=== PATIENT | female | born 1945 | race Caucasian/White ===

== ENCOUNTER → 2018-10-17 | Outpatient (CLI) | payer MEDICARE, OTHER | LOC: MC.RAD 13:58 | DX: Z12.31 Encounter for screening mammogram for malignant neoplasm of breast (principal) ==

== ENCOUNTER → 2022-12-30 | Outpatient (CLI) | payer MEDICARE | LOC: MC.RAD 09:01 | DX: Z12.31 Encounter for screening mammogram for malignant neoplasm of breast (principal) ==

== ENCOUNTER → 2024-01-24 | Outpatient (CLI) | payer MEDICARE ==
[~2024-01-24] MED LIST: PRILOTC PO
== END ==
LOC: MC.RAD 14:16
DX: Z12.31 Encounter for screening mammogram for malignant neoplasm of breast (principal)

== ENCOUNTER 2024-04-15 07:04 | Day surgery (SDC) | payer MEDICARE ==
[~2024-04-15] VITALS: Ht 160 cm; Wt 50.6 kg
[~2024-04-15 07:04] MED LIST changes: +LR 1,000 ML IV SCH; +Ondansetron 4 MG/2 ML VIAL IV PRN
[2024-04-15 07:17] VITALS: BP 161/76; PULSE 68; TEMP 97.4
--- NOTE | 2024-04-15 07:43 | NUR ---
The patient ambulated back to [facility] independently using a steady gait and appeared to tolerate the activity well. Vital signs obtained. Consent signed. 20G IV started in right hand with one stick, LR infusing without difficulty. Assessment completed. Home medications reconcilled. Call light is within reach. Warm blankets provided. Denies any further needs at this time.
[2024-04-15] MEDS ORDERED: Lidocaine PF 2% (20 MG/ML) 5 ML VIAL ONE (08:30)
[2024-04-15 09:05] VITALS: BP 122/79; PULSE 80; TEMP 97.4
--- NOTE | 2024-04-15 09:10 | NUR ---
0905 PATIENT RETURNS [place] [facility] [place] [facility] [place]. PT AWAKE AND ALERT. RESPIRATIONS UNLABORED. AMBULATED TO RECLINER CHAIR WITH 2:1 SBA. PT DENIES NAUSEA OR ABDOMINAL PAIN. HOOKED UP TO MONITOR AND VS OBTAINED. CALL LIGHT AT SIDE. 0910 PATIENT TOLERATING ICED TEA AND APPLESAUCE WITHOUT NAUSEA OR DIFFICULTY SWALLOWING. 09 DR. SCHNEIDER IN ROOM SPEAKING WITH PATIENT. 929 D/C INSTRUCTIONS REVIEWED WITH PATIENT. PT VERBALIZED UNDERSTANDING AND A COPY OF INSTRUCTIONS PROVIDED IN D/C FOLDER. 0945 PATIENT DRESSES SELF. 0955 PATIENT DISCHARGED FROM UNIT VIA W/C TO A PERSONAL VEHICLE. PT LEFT HOSPITAL IN STABLE CONDITION.
[2024-04-15 09:20] VITALS: BP 153/65; PULSE 57
[2024-04-15 09:35] VITALS: BP 168/71; PULSE 60
== END 2024-04-15 10:15 | disposition home or self-care (01) ==
LOC: SDCO 07:04
DX: K22.2 Esophageal obstruction (principal); K44.9 Diaphragmatic hernia without obstruction or gangrene; K29.30 Chronic superficial gastritis without bleeding
CPT/HCPCS: C1726; J2704; J7120